=== PATIENT | female | born 1960 | race Caucasian/White ===

== ENCOUNTER → 2016-07-01 | Outpatient (CLI) | payer OTHER ==
[~2016-07-01] MED LIST: ASPIR 8181 MG PO; ASPIRIN 325MG325 MG PO; CLARITIN-D 241 EACH PO; CLINDAMYCIN HC300 MG PO; FLEXERIL 10 MG10 MG PO; IBUPROFEN800 MG PO; NORCO 7.5-3251 EACH PO; NORVASC 5 MG TAB5 MG PO; PERCOCET 5-3251 EACH PO; PREMARIN1.25 MG PO; PRILOSEC OTC20 MG PO; VALIUM 5 MG TAB5 MG PO; VIT C PO; ZOFRAN4 MG PO
[2016-07-01 12:43] LABS: HEMOGLOBIN 14.8 gm/dl (12.3-15.3); RED BLOOD COUNT 5.46 M/UL (4.00-5.10); WHITE BLOOD COUNT 4.9 K/UL (4.5-11.0)
[2016-07-01 12:55] LABS: BUN/CREATININE RATIO 17 (0-10)
== END ==
LOC: OPSV2 11:55
PROVIDERS: Podiatrist Foot & Ankle Surgery
DX: Z01.810 Encounter for preprocedural cardiovascular examination (principal); Z01.812 Encounter for preprocedural laboratory examination; Z01.818 Encounter for other preprocedural examination; M72.2 Plantar fascial fibromatosis; M21.6X2 Other acquired deformities of left foot; Z88.0 Allergy status to penicillin; Z88.8 Allergy status to other drugs, medicaments and biological substances
CPT/HCPCS: 36415; 71020; 80048; 85027; 93005

== ENCOUNTER → 2016-07-02 | Day surgery (SDC) | payer OTHER ==
[~2016-07-02] VITALS: Ht 162.6 cm; Wt 85.7 kg
== END | disposition home or self-care (01) ==
LOC: OR 06:37 → EDSTATUS 15:30
PROVIDERS: Podiatrist Foot & Ankle Surgery
PROC: 0LQP0ZZ Repair Left Lower Leg Tendon, Open Approach (ICD-10-PCS; principal; 2016-07-02 07:45)
PROC: 0J8R0ZZ Division of Left Foot Subcutaneous Tissue and Fascia, Open Approach (ICD-10-PCS; 2016-07-02 07:45)
PROC: 0QBM0ZZ Excision of Left Tarsal, Open Approach (ICD-10-PCS; 2016-07-02 07:45)
DX: M72.2 Plantar fascial fibromatosis (principal); M77.32 Calcaneal spur, left foot; M21.6X2 Other acquired deformities of left foot; M76.62 Achilles tendinitis, left leg; M13.872 Other specified arthritis, left ankle and foot; I10 Essential (primary) hypertension; K21.9 Gastro-esophageal reflux disease without esophagitis; E11.9 Type 2 diabetes mellitus without complications; M51.36 Other intervertebral disc degeneration, lumbar region; J45.909 Unspecified asthma, uncomplicated; G43.909 Migraine, unspecified, not intractable, without status migrainosus; Z88.8 Allergy status to other drugs, medicaments and biological substances; Z79.891 Long term (current) use of opiate analgesic; Z79.899 Other long term (current) drug therapy; Z88.0 Allergy status to penicillin; Z90.710 Acquired absence of both cervix and uterus; Z98.41 Cataract extraction status, right eye; Z98.42 Cataract extraction status, left eye
CPT/HCPCS: 73650; 76000; 82962; J0360; J2250; J2405; J2710; J2795; J3010; J3370; J7050; J7120